=== PATIENT | female | born 1975 | race Asian ===

== ENCOUNTER 2021-01-07 04:15 | Day surgery (SDC) | payer OTHER ==
[2021-01-06 10:14] VITALS: BMI 27.8
[2021-01-07] MEDS ORDERED: PROPOFOL 20 ML ONE ×2 (12:53)
[2021-01-07] MEDS ORDERED: MIDAZOLAM HCL 2 MG/2 ML SINGLE DOSE VIAL ONE ×2 (12:53)
[2021-01-07] MEDS ORDERED: ONDANSETRON 4 MG/2 ML VIAL IVPUSH PRN ×2 (13:50→19:50)
[2021-01-07] MEDS ORDERED: oxyCODONE HCL 5 MG TABLET PO PRN ×2 (13:50→13:51)
[2021-01-07] MEDS ORDERED: PROMETHAZINE HCL 25 MG/1 ML VIAL IVPB PRN (13:50)
[2021-01-07] MEDS ORDERED: IBUPROFEN 800 MG/8 ML IJ IVPB PRN (13:51)
[2021-01-07] MEDS ORDERED: IBUPROFEN 600 MG TABLET (FP) PO PRN (13:51)
[2021-01-07] MEDS ORDERED: ELECTROLYTE-148 SOLN 1,000 ML IV SCH (14:00)
[2021-01-07] MEDS ORDERED: ONDANSETRON 4 MG/2 ML VIAL ONE (16:09)
[2021-01-07] MEDS ORDERED: ONDANSETRON 4 MG/2 ML VIAL IVPUSH ONE (16:15)
[2021-01-07 16:46] VITALS: BP 101/58; PULSE 88; TEMP 98
== END 2021-01-07 18:12 | disposition home or self-care (01) ==
LOC: JASU-SURG 04:15
PROVIDERS: ATTEND Obstetrics & Gynecology
PROC: 0UDB8ZX Extraction of Endometrium, Via Natural or Artificial Opening Endoscopic, Diagnostic (ICD-10-PCS; principal; 2021-01-07 14:00)
DX: N92.1 Excessive and frequent menstruation with irregular cycle (principal); D64.9 Anemia, unspecified; N84.0 Polyp of corpus uteri
CPT/HCPCS: 81025; 94760